=== PATIENT | male | born 1970 | race Two or more races ===

== ENCOUNTER 2016-07-30 09:37 | Emergency (ER) | payer OTHER ==
[~2016-07-30] VITALS: Ht 172.7 cm; Wt 79.5 kg
[~2016-07-30 09:37] MED LIST: IBUP800T23 PO; METH750T2 PO
[2016-07-30 09:40] VITALS: BP 137/80; PULSE 74; RESP 24; TEMP 97.9; O2SAT 98
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
[2016-07-30] MEDS ORDERED: ONDANSETRON ODT 4 MG TAB PO ONE (10:00)
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
[2016-07-30] MEDS ORDERED: ROBA500T PO (11:39)
[2016-07-30] MEDS ORDERED: IBUP800T23 PO (11:39)
[2016-07-30] MEDS ORDERED: IBUPROFEN 800 MG TAB PO ONE (11:45)
[2016-07-30] MEDS ORDERED: METHOCARBAMOL 500 MG TAB PO ONE (11:45)
== END 2016-07-30 12:31 | disposition home or self-care (01) ==
LOC: NEPD 09:37
DX: S20.212A Contusion of left front wall of thorax, initial encounter (principal); S16.1XXA Strain of muscle, fascia and tendon at neck level, initial encounter; R51 Headache; V49.40XA Driver injured in collision with unspecified motor vehicles in traffic accident, initial encounter; Y93.89 Activity, other specified; Y92.410 Unspecified street and highway as the place of occurrence of the external cause; R42 Dizziness and giddiness
CPT/HCPCS: 70450; 71010